=== PATIENT | male | born 1990 | race Caucasian/White ===

== ENCOUNTER 2022-06-16 11:10 | Emergency (ER) | payer OTHER, SELFPAY ==
--- NOTE | ~2022-06-16 | XR_ITS ---
EXAMINATION: XR chest 1V portable 06/16/2022 12:04 INDICATION: Cough PROCEDURE: AP portable chest COMPARISON: 05/06/2015 FINDINGS: The lungs are clear. The cardiomediastinal silhouette is within normal limits. There are no pleural effusions. There is no pneumothorax suspected. IMPRESSION: 1: NO ACUTE CARDIOPULMONARY DISEASE. Reviewed, dictated and finalized at location B.
[2022-06-16 11:22] VITALS: BP 128/83; PULSE 99; RESP 16; TEMP 36.9; O2SAT 99
[2022-06-16 12:12] LABS: Influenza A QL RT-PCR Positive (Negative); Influenza B QL RT-PCR Negative (Negative); SARS-CoV-2 RNA PCR Negative
--- NOTE | 2022-06-16 12:15 | ED.URI ---
HPI - URI/Sore Throat General Chief Complaint: Upper Respiratory Infection Stated Complaint: cough, sore throat Time Seen by Provider: 06/16/22 11:31 History of Present Illness HPI Narrative: 31-year-old male presenting with cough since last night, his children was sick last week. He has a runny nose, chills, no nausea or vomiting. Body aches. Related Data Allergies Allergy/AdvReac Type Severity Reaction Status Date / Time No Known Allergies Allergy Verified 06/16/22 11:22 Review of Systems Review of Systems: CONST: No fever. HEENT: Runny nose, sore throat C/V: No chest pain RESP: cough GI: No nausea vomiting : No dysuria. M/S: Body aches SKIN: No rash. NEURO: Headache PSYCH: [No depression] Exam Narrative: EXAMINATION OF ORGAN SYSTEMS/BODY AREAS: Constitutional: Vital signs per nursing GENERAL:[No acute distress, non-toxic appearing.] HEAD: Normal with no signs of head trauma. EYES: EOMI, conjunctiva normal ENT: Hearing grossly intact LUNGS: Nonlabored breathing. HEART: [Regular rate and rhythm] ABD: [Soft], [nontender to palpation] EXT: Normal range of motion SKIN: [No rashes or lesions.] NEURO: [Alert and oriented x 3. No gross focal sensory or strength deficits.] PSYCH: Normal affect Course Vital Signs Vital signs: Vital Signs Temperature 98.5 F 06/16/22 11:22 Pulse Rate 99 06/16/22 11:22 Respiratory Rate 16 06/16/22 11:22 Blood Pressure 128/83 06/16/22 11:22 Pulse Oximetry 99 06/16/22 11:22 Temperature 98.5 F 06/16/22 11:22 Pulse Rate 99 06/16/22 11:22 Respiratory Rate 16 06/16/22 11:22 Blood Pressure 128/83 06/16/22 11:22 Pulse Oximetry 99 06/16/22 11:22 Oxygen Delivery Room Air 06/16/22 12:00 MDM - URI/Sore Throat MDM Narrative Medical decision making narrative: ED COURSE AND MEDICAL DECISION MAKING: This 31-year-old maleyear old patient presents with symptoms most suggestive of viral upper respiratory tract infection. Lungs are clear bilaterally without any respiratory distress or accessory muscle use. He tests positive for flu. Chest x-ray is clear. He is discharged home in stable condition with expectant management. Return precautions were provided. Procedures: Pulse oximetry interpretation - not hypoxic. Review of medical records. DISPOSITION: Discharged home in stable condition. Lab Data Labs: Lab Results 06/16/22 Range/Units 11:27 Influenza A (RT-PCR) Positive (Negative) Influenza B (RT-PCR) Negative (Negative) SARS-CoV-2 RNA (RT-PCR) Negative Discharge Plan Discharge Clinical Impression: Flu Patient Disposition: Home, Self-Care Condition: Stable Instructions: Antibiotic Form, Influenza (ED) Additional Instructions: Please follow up with your doctor and return if you feel worse. Prescriptions: New fluticasone propionate 50 mcg/actuation spray,suspension 1 spray intranasal DAILY Qty: 16 0RF Rx Instructions: administer into each nostril ibuprofen 600 mg tablet 600 mg PO Q6H PRN (Reason: pain) Qty: 30 0RF Follow-up/Referrals: PHYSICIAN,[employer] RENT[employer] SALES ASSISTANT [Primary Care Provider] - Reno La MD [Physician] - 2 Days Stand Alone Forms: Work/School Release IP
== END 2022-06-16 13:06 | disposition home or self-care (01) ==
PROVIDERS: Emergency Provider Emergency Medicine
DX: J10.1 Influenza due to other identified influenza virus with other respiratory manifestations (principal); Z20.822 Contact with and (suspected) exposure to COVID-19
CPT/HCPCS: 71045; 87502; 99283; U0003; U0005

== ENCOUNTER 2022-06-30 10:29 | Emergency (ER) | payer OTHER, SELFPAY ==
[2022-06-30 10:35] VITALS: BP 125/64; PULSE 87; RESP 18; TEMP 36.9; O2SAT 98
--- NOTE | 2022-06-30 12:33 | ED.EYEPROB ---
HPI - Eye Problem General Chief complaint: Eye Problems Stated complaint: EYE WELLING, REDNESS, SORE THROAT Time Seen by Provider: 06/30/22 12:16 Source: patient Mode of arrival: ambulatory Limitations: no limitations History of Present Illness HPI Narrative: 31-year-old otherwise healthy here with complaints of pain, redness and drainage from the right eye since this morning. He states that his son had pinkeye last week also complains of having fever last night none at this time. chief complaint: eye redness Onset (ago): day(s) (1) Onset description: awoke with symptoms Duration: constant Location: right eye Eye Symptoms: redness, itching and discharge Place: home Mechanism: none Severity: mild Treatments Prior to Arrival: none Related Data Allergies Allergy/AdvReac Type Severity Reaction Status Date / Time No Known Allergies Allergy Verified 06/30/22 11:30 Review of Systems Constitutional: Constitutional: Reports no additional constitutional complaints Eyes: Eyes: Reports as per HPI ENT: Reports system reviewed and no additional complaints, except as documented Cardiovascular: Cardiovascular: Reports no additional cardiovascular complaints Respiratory: Respiratory: Reports no additional respiratory complaints Gastrointestinal: Gastrointestinal: Reports no additional gastrointestinal complaints Musculoskeletal: Musculoskeletal: Reports no additional musculoskeletal complaints Integumentary/Breasts: Skin/Breast: Reports system reviewed and no additional complaints, except as docu Neurologic: Reports system reviewed and no additional complaints, except as documented Psychiatric: Psychiatric: Reports no additional psychiatric complaints Exam Narrative: GENERAL: Well-appearing, well-nourished, and in no acute distress. HEAD: Normocephalic, atraumatic. EYES: PERRLA and EOMI. right conjunctiva is erythematous ENT: Nares clear, no rhinorrhea or epistaxis. Mucous membranes moist. NECK: Supple. CHEST: Clear to auscultation. No respiratory distress. HEART: Regular rate and rhythm. No murmur heard. Normal peripheral pulses. EXTREMITIES: Normal range of motion. No edema. SKIN: Warm, dry, no rash. NEURO: No focal deficits. Alert and oriented x3. PSYCH: Normal mood and affect. Course Vital Signs Vital signs: Vital Signs Temperature 36.9 C 06/30/22 10:35 Pulse Rate 87 06/30/22 10:35 Respiratory Rate 18 06/30/22 10:35 Blood Pressure 125/64 06/30/22 10:35 Pulse Oximetry 98 06/30/22 10:35 Temperature 36.9 C 06/30/22 10:35 Pulse Rate 87 06/30/22 10:35 Respiratory Rate 18 06/30/22 10:35 Blood Pressure 125/64 06/30/22 10:35 Pulse Oximetry 98 06/30/22 10:35 Discharge Plan Discharge Clinical Impression: Bacterial conjunctivitis Patient Disposition: Home, Self-Care Condition: Stable Instructions: Antibiotic Form Prescriptions: New sulfacetamide sodium 10 % drops 1 drp EACH EYE Q4H Qty: 5 0RF No Action fluticasone propionate 50 mcg/actuation spray,suspension 1 spray intranasal DAILY Qty: 16 0RF Rx Instructions: administer into each nostril ibuprofen 600 mg tablet 600 mg PO Q6H PRN (Reason: pain) Qty: 30 0RF Follow-up/Referrals: Bradford Huston MD [Physician] - PHYSICIAN,STAFF ELECT[employer]IC WARFARE OFFICER [Primary Care Provider] - Stand Alone Forms: Work/School Release IP
== END 2022-06-30 12:53 | disposition home or self-care (01) ==
PROVIDERS: Emergency Provider Family Medicine
DX: H10.89 Other conjunctivitis (principal)
CPT/HCPCS: 99283